=== PATIENT | female | born 1965 | race African-American/Black ===

== ENCOUNTER 2016-10-11 10:09 | Emergency (ER) | payer MEDICARE, MEDICAID ==
[~2016-10-11] VITALS: Ht 167.6 cm; Wt 85.0 kg
[2016-10-11] MEDS ORDERED: LORA2TAB2 PO (10:16)
[2016-10-11] MEDS ORDERED: NORT25CA PO (10:17)
[2016-10-11] MEDS ORDERED: DIXL5 PO (10:17)
[2016-10-11] MEDS ORDERED: LORA10TA7 PO (10:17)
[2016-10-11] MEDS ORDERED: BUPR150T9 PO (10:18)
[2016-10-11] MEDS ORDERED: PREG50CA PO (10:18)
[2016-10-11] MEDS ORDERED: POLY250017 MC (10:19)
[2016-10-11] MEDS ORDERED: HYDR453.4 TP (10:19)
[2016-10-11] MEDS ORDERED: MULT-1146 PO (10:20)
[2016-10-11] MEDS ORDERED: OMEP20TA80 PO (10:20)
[2016-10-11] MEDS ORDERED: OCD PO (10:20)
[2016-10-11] MEDS ORDERED: HYDR-3735 GT (10:21)
[2016-10-11] MEDS ORDERED: IBUP-1510 PO (10:21)
[2016-10-11] MEDS ORDERED: KETOROLAC 60MG/2ML VIAL IM ONE (12:15)
[2016-10-11 13:48] VITALS: BP 125/81
== END 2016-10-11 13:49 | disposition home or self-care (01) ==
LOC: ER 12:11
DX: S33.5XXA Sprain of ligaments of lumbar spine, initial encounter (principal); S76.012A Strain of muscle, fascia and tendon of left hip, initial encounter; S76.011A Strain of muscle, fascia and tendon of right hip, initial encounter; X58.XXXA Exposure to other specified factors, initial encounter; Y93.89 Activity, other specified; Y92.89 Other specified places as the place of occurrence of the external cause; M76.20 Iliac crest spur, unspecified hip; Z88.8 Allergy status to other drugs, medicaments and biological substances; Z88.1 Allergy status to other antibiotic agents; Z79.899 Other long term (current) drug therapy
CPT/HCPCS: 72110; 73521; 96372; 99284; J1885

== ENCOUNTER 2018-12-26 09:48 | Emergency (ER) | payer MEDICARE, MEDICAID ==
[~2018-12-26] VITALS: Ht 170.2 cm; Wt 96.0 kg
[~2018-12-26 09:48] MED LIST: BUPR150T9 PO; DIXL5 PO; HYDR-3735 GT; HYDR453.4 TP; IBUP-2030 PO; LORA10TA7 PO; LORA2TAB2 PO; MULT-1146 PO; NORT25CA PO; OCD PO; OMEP20TA2 PO; POLY250017 MC; PREG50CA PO
[2018-12-26 10:07] VITALS: BP 124/66
== END 2018-12-26 10:50 | disposition home or self-care (01) ==
LOC: ER 10:20
DX: S80.862A Insect bite (nonvenomous), left lower leg, initial encounter (principal); S80.861A Insect bite (nonvenomous), right lower leg, initial encounter; L03.116 Cellulitis of left lower limb; L03.115 Cellulitis of right lower limb; M79.7 Fibromyalgia; F41.9 Anxiety disorder, unspecified; F32.9 Major depressive disorder, single episode, unspecified; Z90.49 Acquired absence of other specified parts of digestive tract; Z88.6 Allergy status to analgesic agent; Z88.3 Allergy status to other anti-infective agents; W57.XXXA Bitten or stung by nonvenomous insect and other nonvenomous arthropods, initial encounter; Y93.89 Activity, other specified; Y92.018 Other place in single-family (private) house as the place of occurrence of the external cause
CPT/HCPCS: 99283

== ENCOUNTER 2021-11-01 09:09 | Emergency (ER) | payer MEDICARE, MEDICAID ==
[~2021-11-01] VITALS: Ht 167.6 cm; Wt 102.0 kg
[~2021-11-01 09:09] MED LIST changes: +BUPR-114 PO; -BUPR150T9 PO; -OMEP20TA2 PO; +OMEP20TA23 PO
[2021-11-01 09:14] VITALS: BP 135/81
[2021-11-01] MEDS ORDERED: CEPH500C2 MT (10:09)
== END 2021-11-01 10:31 | disposition home or self-care (01) ==
LOC: ER 09:33
DX: L03.221 Cellulitis of neck (principal); Z88.1 Allergy status to other antibiotic agents
CPT/HCPCS: 99283

== ENCOUNTER 2024-05-30 08:19 | Emergency (ER) | payer MEDICARE, MEDICAID ==
[~2024-05-30] VITALS: Ht 170.2 cm; Wt 104.3 kg
[~2024-05-30 08:19] MED LIST changes: +CEPH500C2 MT
[2024-05-30 08:22] VITALS: O2SAT 98
[2024-05-30 08:32] VITALS: BP 125/83; PULSE 89; RESP 14; TEMP 36.9; O2SAT 99
[2024-05-30] MEDS ORDERED: AMOX1TAB16 MT (08:59)
== END 2024-05-30 09:32 | disposition home or self-care (01) ==
LOC: ER 08:19
DX: J36 Peritonsillar abscess (principal); Z90.49 Acquired absence of other specified parts of digestive tract; Z88.5 Allergy status to narcotic agent; Z88.1 Allergy status to other antibiotic agents; M79.7 Fibromyalgia; F41.9 Anxiety disorder, unspecified; F32.A Depression, unspecified; Z79.899 Other long term (current) drug therapy
CPT/HCPCS: 99283

== ENCOUNTER 2024-11-26 11:35 | Emergency (ER) | payer MEDICARE, MEDICAID ==
[~2024-11-26] VITALS: Ht 167.6 cm; Wt 100.0 kg
[~2024-11-26 11:35] MED LIST changes: +AMOX1TAB16 MT
[2024-11-26 11:45] VITALS: O2SAT 99
[2024-11-26] MEDS ORDERED: OXYM15SP NS (14:14)
[2024-11-26 14:33] VITALS: BP 132/70; PULSE 84; RESP 22; TEMP 37.2; O2SAT 97
== END 2024-11-26 14:35 | disposition home or self-care (01) ==
LOC: ER 11:35
DX: J32.9 Chronic sinusitis, unspecified (principal); F32.A Depression, unspecified; F41.9 Anxiety disorder, unspecified; M79.7 Fibromyalgia; Z79.899 Other long term (current) drug therapy; Z90.49 Acquired absence of other specified parts of digestive tract; Z88.1 Allergy status to other antibiotic agents; Z88.5 Allergy status to narcotic agent; Z98.890 Other specified postprocedural states
CPT/HCPCS: 99282